=== PATIENT | female | born 2005 | race Caucasian/White ===

== ENCOUNTER 2024-09-02 00:52 | Emergency (ER) | payer BC, SELFPAY ==
[2024-09-02 00:55] VITALS: BP 121/66; PULSE 66; RESP 12; TEMP 36.6; O2SAT 99; BMI 25.8
--- NOTE | 2024-09-02 01:46 | ED.ALLEREA ---
HPI - Allergic Reaction General Chief complaint: Skin/Abscess/Foreign Body Stated complaint: Hives Time Seen by Provider: 09/02/24 01:24 Source: patient Mode of arrival: ambulatory Limitations: no limitations History of Present Illness ED Provider: Dr. Aroldo Clark HPI narrative: 19-year-old female who presents emergency department for evaluation of rash and itchiness. The patient states that she began to get itchiness at around 19:30 hours. At 23:00 hours she noted a rash on her skin. Patient was concerned that she was having allergic reaction and came to the emergency department for evaluation. Patient did not take any medications prior to coming to the emergency department. Patient states that she ate lunch and did not eat dinner until after the pruritus started. Patient has not been on any new medications. She has never had an allergic reaction before. She denied lightheadedness, dizziness, difficulty swallowing, throat tightness, nausea, vomiting, chest pain, shortness of breath. 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 Social History Social History Advance Directives: No Do you have a plan to hurt others: No Plan Physical Exam ED Vital Signs: Vital Signs - 24 hr 09/02/24 00:55 Temperature 97.9 F Pulse Rate 66 Respiratory Rate 12 Blood Pressure 121/66 Pulse Oximetry 99 Oxygen Delivery Method Room Air BMI result Body Mass Index 25.8 Vital signs were normal Exam: General: Awake, alert in no distress Head: Normocephalic, atraumatic EENT: PERRL, Lids normal, sclera normal, conjunctiva normal, nose normal , ears normal, throat without erythema or exudates Lung: breath sounds symmetric, no wheezing, rales or rhonchi Heart: regular rate and rhythm, normal S1, S2 no murmurs or rubs Abdomen: soft, non-tender, nondistended, normal bowel sounds Neuro: Awake, alert, oriented, normal speech Skin: Patient has an urticarial, erythematous rash to her upper extremities. Medical Decision Making Medical Decision Making MDM Narrative: 19-year-old female who presents emergency department for evaluation of rash and itchiness. The patient states that she began to get itchiness at around 19:30 hours. At 23:00 hours she noted a rash on her skin. Patient was concerned that she was having allergic reaction and came to the emergency department for evaluation. Patient did not take any medications prior to coming to the emergency department. Patient states that she ate lunch and did not eat dinner until after the pruritus started. Patient has not been on any new medications. She has never had an allergic reaction before. She denied lightheadedness, dizziness, difficulty swallowing, throat tightness, nausea, vomiting, chest pain, shortness of breath. Vital signs were normal. Exam is consistent with an urticarial rash. Differential diagnosis: ?Includes but is not limited to allergic reaction, anaphylaxis Course: Patient's presentation and findings are consistent with urticarial rash suggesting that she had an allergic reaction to an unknown allergen. I did discuss this with the patient. At this time I do not think that the patient has a anaphylaxis. The patient was given prednisone 60 mg orally and Pepcid 20 mg orally. Patient drove herself here to the emergency department in [place] she does have diphenhydramine at home. She was given a prescription for prednisone 60 mg once a day for 5 days. She was advised to take Benadryl 25 mg pills, 1 or 2 pills every 4-6 hours as needed for rash, pruritus. She was also advised to take Pepcid 20 mg once a day for 5 days. She was given printed and verbal instructions and discharged home. Admission/Observation Consideration of admission/observation: Escalation of care including admission/observation considered (No) Prescription Management I considered prescription management with: Other (Anti-inflammatory steroids: Prednisone) Discharge Plan Discharge Clinical Impression: Allergic reaction Patient Disposition: Home, Self-Care Instructions: Allergies (ED) Additional Instructions: Your symptoms are consistent with an allergic reaction. Often the cause of an allergic reaction is difficult to determine however based on your symptoms, I think you are having a mild allergic reaction. Take prednisone 20 mg pills, 3 pills once a day for 5 days. While you ?are taking prednisone, do not take any NSAIDs (Motrin, Advil, ibuprofen, Aleve, naproxen). Take Benadryl (diphenhydramine) 25 mg pills, 1 or 2 pills 4 times a day for the next 2-3 days to help reduce the swelling and itchiness in the area of your rash. This medication will make you sleepy. Do not drive or work while taking this medication. Take Pepcid (famotidine) 20 mg pills, 1 pill once a day for 5 days. This medication is a histamine sally (H2 sally) and will help reduce the allergic reaction symptoms. Please return to the emergency department if you develop lightheadedness, dizziness, difficulty swallowing, throat tightness, shortness of breath, swelling of your lips, tongue, or if your symptoms get worse in any way or if you develop any symptoms that are concerning to you. Prescriptions: New prednisone 20 mg tablet 60 mg PO DAILY 5 Days Qty: 15 0RF Print Language: [place]
[2024-09-02] MEDS: Famotidine 20 MG TABLET PO (01:57)
[2024-09-02] MEDS: predniSONE 20 MG TABLET 60 MG PO (01:57)
[2024-09-02 02:02] VITALS: BP 118/58; PULSE 64; RESP 16; TEMP 36.7; O2SAT 98
== END 2024-09-02 02:09 | disposition home or self-care (01) ==
PROVIDERS: Emergency Provider Emergency Medicine Emergency Medical Services; PCP Nurse Practitioner Family
DX: T78.40XA Allergy, unspecified, initial encounter (principal); L50.9 Urticaria, unspecified; X58.XXXA Exposure to other specified factors, initial encounter
CPT/HCPCS: 99282; 99283